=== PATIENT | female | born 1975 | race Caucasian/White ===

== ENCOUNTER 2024-02-22 04:14 | Emergency (ER) | payer MEDICAID, OTHER ==
[~2024-02-22] VITALS: Ht 134.6 cm; Wt 68.0 kg
[~2024-02-22 04:14] MED LIST: ALBU18HF12 IH; PRED1 PO
[2024-02-22 04:48] VITALS: TEMP 98.6
[2024-02-22 05:00] LABS: COVID AG,FIA SOURCE NASAL SWAB
[2024-02-22 05:07] LABS: BASOPHILS % (AUTO) 1.1 % (0.0-2.0); EOSINOPHILS % (AUTO) 2.2 % (1.0-6.0); HEMATOCRIT 40.3 % (36-46); LYMPHOCYTES # (AUTO) 3.2 K/uL (1.0-4.8); LYMPHOCYTES % (AUTO) 55.6 % (22.0-44.0); MEAN CORPUSCULAR HEMOGLOBIN 35.2 pg (26.0-34.0); MEAN CORPUSCULAR HGB CONC 34.9 G/dL (31.0-37.0); MEAN CORPUSCULAR VOLUME 101 fL (80-100); MONOCYTES # (AUTO) 0.5 K/uL (0.1-1.0); MONOCYTES % (AUTO) 8.7 % (2.0-9.0); NEUTROPHILS # (AUTO) 1.8 K/uL (1.8-7.7); NEUTROPHILS % (AUTO) 32.4 % (40.0-70.0); PLATELET COUNT (AUTO) 178 K/uL (150-450); RED BLOOD CELL COUNT(AUTO) 3.99 MIL/uL (4.00-5.20); RED CELL DISTRIBUTION WIDTH 13.1 % (11.5-14.5); WHITE BLOOD COUNT (AUTO) 5.7 K/uL (4.5-11.0)
[2024-02-22 05:19] LABS: ALCOHOL, BLOOD (SERUM) 283 mg/dL (0-10); ANION GAP 11 mmol/L (8-16); CALCIUM, TOTAL 7.8 mg/dL (8.8-10.5); CARBON DIOXIDE 25 mmol/L (22-29); CHLORIDE 101 mmol/L (98-107); CREATININE 0.54 mg/dL (0.60-1.30); GLOMERULAR FILTR. RATE CALC > 60 mL/min (>60); GLUCOSE,RANDOM 79 mg/dL (70-110); POTASSIUM 3.5 mmol/L (3.5-5.1); SODIUM SERUM 137 mmol/L (136-145); UREA NITROGEN, BLOOD 5 mg/dL (7-18)
[2024-02-22 05:20] LABS: APPEARANCE,URINE HAZY (CLEAR); BILIRUBIN,URINE NEGATIVE (NEGATIVE); COLOR,URINE LIGHT YELLOW (YELLOW); GLUCOSE, URINE (UA) NEGATIVE (NEGATIVE); KETONES,URINE NEGATIVE (NEGATIVE); LEUKOCYTE ESTERASE ,URINE MODERATE (NEGATIVE); OCCULT BLOOD,URINE NEGATIVE (NEGATIVE); PROTEIN,URINE NEGATIVE (NEGATIVE); SPECIFIC GRAVITIY, URINE 1.006 (1.003-1.030); UROBILINOGEN,URINE <=1.0 mg/dL (<=1.0)
[2024-02-22 05:21] LABS: SARS-COV2 (COVID) ANTIGEN,FIA Negative (Negative)
[2024-02-22 05:28] LABS: AMPHET/METH SCREEN,URINE NEGATIVE (NEGATIVE); BARBITURATE SCREEN, URINE NEGATIVE (NEGATIVE); BENZODIAZEPINES SCREEN,URINE NEGATIVE (NEGATIVE); CANNABINOID SCREEN,URINE NEGATIVE (NEGATIVE); COCAINE SCREEN,URINE NEGATIVE (NEGATIVE); METHADONE SCREEN, URINE NEGATIVE (NEGATIVE); OPIATE SCREEN,URINE NEGATIVE (NEGATIVE); PHENCYCLIDINE SCREEN,URINE NEGATIVE (NEGATIVE)
[2024-02-22 05:31] LABS: ALCOHOL, URINE DRUG SCREEN POSITIVE (NEGATIVE)
[2024-02-22 05:41] LABS: BACTERIA,URINE Few /HPF (None Seen); NITRATE,URINE NEGATIVE (NEGATIVE); RBC,URINE None Seen /HPF (0-2); SQUAMOUS EPITHELIAL CELL,UR Few /LPF (None Seen)
[2024-02-22] MEDS ORDERED: HALOPERIDOL 5 MG TABLET PO PRN (10:45)
[2024-02-22] MEDS ORDERED: ZOLPIDEM TARTRATE 10 MG TABLET PO PRN (10:45)
[2024-02-22] MEDS ORDERED: LORazepam 2 MG TABLET PO PRN (10:45)
[2024-02-22 10:50] VITALS: BP 145/81; PULSE 102; RESP 18; O2SAT 96
== END 2024-02-22 11:04 ==
LOC: EMS 04:15
DX: R45.851 Suicidal ideations (principal); F10.129 Alcohol abuse with intoxication, unspecified; F32.9 Major depressive disorder, single episode, unspecified; Z79.52 Long term (current) use of systemic steroids; Z87.440 Personal history of urinary (tract) infections; Z20.822 Contact with and (suspected) exposure to COVID-19; Y90.6 Blood alcohol level of 120-199 mg/100 ml
CPT/HCPCS: 99283; 87426; 80048; 81001; 85025; 36415; 80307; G0480

== ENCOUNTER → 2024-08-27 | Emergency (ER) | payer MEDICAID, OTHER ==
[~2024-08-27] VITALS: Ht 142.2 cm; Wt 65.9 kg
[~2024-08-27] MED LIST changes: -ALBU18HF12 IH; +CEPH-558 PO; +LEVO25TA9 PO; -PRED1 PO
[2024-08-27 20:05] VITALS: TEMP 98.2
[2024-08-27 20:59] VITALS: BP 137/80; PULSE 74; RESP 16; O2SAT 97
== END ==
LOC: EMS 19:04
DX: Z00.8 Encounter for other general examination (principal); F17.210 Nicotine dependence, cigarettes, uncomplicated; Z87.440 Personal history of urinary (tract) infections
CPT/HCPCS: 99283; Z7502